=== PATIENT | female | born 1980 | race Caucasian/White ===

== ENCOUNTER 2021-06-13 08:18 | Day surgery (SDC) | payer BC ==
[2021-06-10 16:05] VITALS: BMI 26.2
--- NOTE | 2021-06-13 06:47 | P.HPOB ---
History of Present Illness H&P Date: 06/13/21 Chief Complaint: Pelvic pain 40-year-old G0 presents for laparoscopy and bilateral salpingectomy due to hydrosalpinx and pelvic pain. Review of Systems All systems: negative Constitutional: Denies chills, Denies fever Eyes: denies blurred vision, denies pain Ears, nose, mouth and throat: Denies headache, Denies sore throat Cardiovascular: Denies chest pain, Denies shortness of breath Respiratory: Denies cough Gastrointestinal: Denies abdominal pain, Denies diarrhea, Denies nausea, Denies vomiting Genitourinary: Denies dysuria, Denies hematuria Musculoskeletal: Denies myalgias Integumentary: Denies pruritus, Denies rash Neurological: Denies numbness, Denies weakness Psychiatric: Denies anxiety, Denies depression Endocrine: Denies fatigue, Denies weight change Past Medical History Past Medical History: GERD/Reflux Additional Past Medical History / Comment(s): "Hx Anemia many times". "Slight memory problems/forgetfulness recently." History of Any Multi-Drug Resistant Organisms: None Reported Past Surgical History: No Surgical Hx Reported Past Anesthesia/Blood Transfusion Reactions: No Reported Reaction, Motion Sickness Additional Past Anesthesia/Blood Transfusion Reaction / Comment(s): Patient has never had general anesthesia. Grandmother PONV. Additional Psychological History / Comment(s): Patients states has anxiety, some depression and probably ADD or ADHD, but nothing that has been diagnosed. Smoking Status: Former smoker Past Alcohol Use History: Occasional Additional Past Alcohol Use History / Comment(s): Quit smoking 3-4 yrs ago. Past Drug Use History: Marijuana Additional Drug Use History / Comment(s): Uses edibles, aware no use 24 hrs prior to procedure. - Past Family History Mother Family Medical History: No Reported History Medications and Allergies Home Medications Medication Instructions Recorded Confirmed Type Diclofenac Sodium Gel [Voltaren 2 gm TOPICAL QID PRN 06/10/21 06/10/21 History Gel] Ergocalciferol [Vitamin D2 (1250 1,250 mcg PO SA 06/10/21 06/10/21 History Mcg = 46050 Iu)] Ibuprofen 200 - 400 mg PO BID PRN 06/10/21 06/10/21 History Ondansetron [Zofran] 4 mg PO Q8HR PRN 06/10/21 06/10/21 History Allergies Allergy/AdvReac Type Severity Reaction Status Date / Time No Known Allergies Allergy Verified 06/10/21 15:41 Exam Osteopathic Statement: *. No significant issues noted on an osteopathic structural exam other than those noted in the History and Physical/Consult. Heart: Regular rate and rhythm Lungs: Clear to auscultation bilaterally Abdomen: Soft, nontender Extremities: Negative Homans sign Assessment and Plan (1) Hydrosalpinx Status: Acute Code(s): N70.11 - CHRONIC SALPINGITIS SNOMED Code(s): 96440278 (2) Pelvic pain Status: Acute Code(s): R10.2 - PELVIC AND PERINEAL PAIN SNOMED Code(s): 97049280 Plan: 1. Laparoscopic bilateral salpingectomy possible cauterization of endometriosis using da Lucina
[~2021-06-13 08:18] MED LIST: Pre Op ABX Message 1 EACH MISC MISCELLANE ONE
[2021-06-13] MEDS ORDERED: ONDANSETRON 4 MG/2 ML VIAL ONE (09:08)
[2021-06-13] MEDS ORDERED: LACTATED RINGERS 1,000 ML IV ONE (09:21)
[2021-06-13] MEDS ORDERED: DEXAMETHASONE SOD PHOSPHATE 4 MG/ML 1 ML VIAL IVP ONE (09:23)
[2021-06-13] MEDS ORDERED: ONDANSETRON 4 MG/2 ML VIAL IVP ONE (09:23)
[2021-06-13] MEDS ORDERED: SCOPOLAMINE 1.5MG/72HR PATCH TRANSDERM ONE (09:24)
[2021-06-13] MEDS ORDERED: ROCURONIUM 10 MG/ML (5 ML VIAL) IV ONE (11:04)
[2021-06-13] MEDS ORDERED: LIDOCAINE 1% INJ 10MG/ML (20 ML MDV) ONE (11:04)
[2021-06-13] MEDS ORDERED: KETAMINE 10 MG/ML 20 ML VIAL ONE (11:04)
[2021-06-13] MEDS ORDERED: MIDAZOLAM 2 MG/2 ML VIAL ONE (11:04)
[2021-06-13] MEDS ORDERED: GLYCOPYRROLATE 0.2 MG/ML 2 ML VIAL ONE (11:04)
[2021-06-13] MEDS ORDERED: SUCCINYLCHOLINE CHLORIDE 100 MG/5 ML SYR IV ONE (11:04)
[2021-06-13] MEDS ORDERED: fentaNYL (PF) 50 MCG/ML 2 ML AMP ONE (11:04)
[2021-06-13] MEDS ORDERED: PROPOFOL 10 MG/ML 20 ML VIAL IV ONE (11:04)
[2021-06-13] MEDS ORDERED: NEOSTIGMINE 1 MG/ML 10 ML VIAL ONE (11:04)
[2021-06-13] MEDS ORDERED: HYDROmorphone (PF) 1 MG/ML ONE (11:04)
[2021-06-13] MEDS ORDERED: BUPIVACAINE (PF) 0.25% 30 ML VIAL SQ ONE (11:36)
[2021-06-13] MEDS ORDERED: CELLULOSE,OXIDIZED 1 EACH EACH MISCELLANE ONE (11:57)
--- NOTE | 2021-06-13 12:15 | P.OP ---
Date of Procedure: 06/13/21 Preoperative Diagnosis: 1. hydrosalpinx 2. pelvic pain Postoperative Diagnosis: 1. hydrosalpinx 2. pelvic pain 3. extensive omental pelvic adhesions Procedure(s) Performed: laparoscopic extensive lysis of adhesions and bilateral salpingectomy using da Lucina Anesthesia: NANCY Surgeon: Alyson Arias Estimated Blood Loss (ml): 20 IV fluids (ml): 400 Urine output (ml): 10 Pathology: other (bilateral fallopian tubes) Condition: stable Disposition: PACU Operative Findings: Extensive omental adhesions up to the umbilicus and down to the bladder flap and posterior cul-de-sac of the uterus. Hydrosalpinx on the left and paratubal cysts on the right. Description of Procedure: Patient is taken the operating room and general anesthesia was obtained without difficulty. She is prepped and draped in normal sterile fashion dorsal lithotomy position, legs placed in the William stirrups. Bladder was drained of all urine. Weighted speculum place in vagina the anterior lip the cervix was grasped with single-tooth tenaculum. The cervix is dilated to allow the sound passed. The uterus sounded to 9 cm. The kroner manipulator was then placed. Attention was then turned to the abdomen and gloves were changed. Attention was then turned to the abdomen and gloves were changed. A 5 mm supraumbilical incision was made the scalpel and a 5 mm optical trocar was placed under direct visualization. 10 cm to the right of this and 2 cm down a 5 mm incision was made and 8 mm da Lucina port was placed under direct visualization. Same measurements on the opposite side of the patient's abdomen, the 5 mm incision was made and 8 mm da Lucina port was placed under direct visualization. In the left upper quadrant a 10 mm incision was made and a 10 mm optical trocar was placed under direct visualization. The 5 mm optical trocar was then replaced with the 8 mm da Lucina camera port. The robot was docked on patient's right side. The camera was introduced and then the monopolar curved scissor and [place] bipolar placed under direct visualization. I broke scrub and went to the physician console. The omentum was held to the anterior abdominal wall with filmy adhesions. These filmy adhesions were taken down both with blunt and sharp dissection as well as cauterization with the monopolar curved scissors. There taken down to the level of the uterus and then the bladder flap was noted to also have some adhesions these were taken down with sharp dissection. The omental adhesions did extend down bilaterally and the pelvis most of the adhesions were removed. The right fallopian tube was grasped with a grasper and the mesosalpinx was cauterized with the [place] bipolar and cut with monopolar curved scissors to free this fallopian tube. The fallopian tube was then removed from the abdomen. The left fallopian tube was stuck to the back part of the uterus, I was unable to appreciate the fimbriated end. I started at the cornua of the uterus and used the [place] bipolar to cauterize this area to get to the mesosalpinx. It was cut with the monopolar curved scissors. The followed along the mesosalpinx to the level that I could see of the fallopian tube and it was amputated. It did appear swollen and scarred. This was also removed. Abdomen. The pelvis was irrigated and hemostasis was assured. A piece of Interceed was placed around the uterus to prevent further adhesions. All instruments removed from the vagina and the abdomen. The abdominal incisions were closed with 4-0 Vicryl in a subcuticular fashion. Patient tolerated the procedure well, sponge and instrument counts correct 2 and she was taken to recovery room in stable condition condition
[2021-06-13 12:24] VITALS: RESP 16; TEMP 97.5
[2021-06-13] MEDS ORDERED: Acetaminophen-Codeine 300-30mg TAB ONE (13:38)
[2021-06-13] MEDS ORDERED: Acetaminophen-Codeine 300-30mg TAB PO ONE (13:43)
[2021-06-13 14:23] VITALS: BP 114/74; PULSE 62
== END 2021-06-13 15:14 | disposition home or self-care (01) ==
LOC: OR 08:18
PROVIDERS: ATTEND Obstetrics & Gynecology
DX: N70.11 Chronic salpingitis (principal); N73.6 Female pelvic peritoneal adhesions (postinfective); K21.9 Gastro-esophageal reflux disease without esophagitis; R41.3 Other amnesia; F41.9 Anxiety disorder, unspecified; F32.9 Major depressive disorder, single episode, unspecified; Z87.891 Personal history of nicotine dependence; Z79.899 Other long term (current) drug therapy; N83.8 Other noninflammatory disorders of ovary, fallopian tube and broad ligament
CPT/HCPCS: 49329; 58661; S2900; 81025; 88304